=== PATIENT | male | born 1970 | race Caucasian/White ===

== ENCOUNTER 2017-01-09 11:15 | Emergency (ER) | payer BC ==
[2017-01-09] MEDS ORDERED: DEXAMETHASONE 10 MG/ML VIAL PO STA (11:29)
[2017-01-09] MEDS ORDERED: CHERRY SYRUP 10 ML UDC PO ONE (11:35)
[2017-01-09] MEDS ORDERED: DEXAMETHASONE 10 MG/ML VIAL ONE (11:35)
== END 2017-01-09 14:03 | disposition home or self-care (01) ==
DX: G51.0 Bell's palsy (principal); H66.003 Acute suppurative otitis media without spontaneous rupture of ear drum, bilateral
CPT/HCPCS: 36415; 70450; 80053; 83690; 84484; 85025; 93005; 93010; 99283; 99284; A9270

== ENCOUNTER 2020-06-11 10:06 | Outpatient (CLI) | payer BC ==
--- NOTE | 2020-06-11 11:05 | SLEEP CARE CONSULTATION ---
Information from patient questionnaire entered by Trudi Hoyt. I have reviewed and concur with the information entered by Trudi Hoyt. This document represents the service I personally performed and the decisions made by me, Risa Sim ARNP. History of Present Illness Service Date and Time: 06/11/2020 1006 Reason for Visit: New patient Chief Complaint: reports: Insomnia (hard to stay asleep), Unrefreshed sleep, Snoring, Excessive daytime sleepiness, Observed pauses in breathing, Fatigue, Frequent awakenings at night Date of Onset: 5+ years Usual bedtime: 2100 Time it takes to fall asleep: 10-15 minutes Snores at night: Yes Observed to quit breathing while asleep: Yes Sleeps alone due to snoring: No Number of times waking at night: 7-8 Reasons for waking at night: reports: Snoring, Gasping for air, Other (and in a sweat). denies: Choking Toss, Turn, or Twitch while sleeping: Yes Recalls having dreams: Yes (don't have them often) Usually gets out of bed at: 0200, 0400, 0500 Feels refreshed in the morning: No Morning headache: No Sleepy or fatigued during the day: Yes Ever fallen asleep while driving: No Takes day naps: Yes (daily, for about 30 minutes to hours) Dreams during day naps: No Prior sleep studies: No Additional HPI information: I had the pleasure of seeing THUAN BETH today regarding the possibility of him having a sleep disorder. His current complaints are insomnia, snoring, frequent awakenings at night, unrefreshed sleep and fatigue. He has a history of hypertension, depression, anxiety and PTSD. He can fall asleep easily but has difficulty staying asleep. He awakens several times a night. He snores loudly but not enough that his sleeps in another room and she has told him she has seen him pause in breathing while sleeping. He has woken up snoring and "taking a deep breath" like he "had stopped breathing". He states even after a short amount of sleep he will wake up alert and "ready to go" but he is very tired and sleepy throughout the day. He has a brother who has sleep apnea and is on a CPAP machine. His father and son have been known to sleep walk. He states he has not been told he does. - Parasomnia Symptoms Ever been unable to move upon waking from sleep: No Walks in sleep: No Talks in sleep: No Ever acted out dreams in sleep: Yes Ever felt weak in the knees when startled or emotional: No Bothered by creepy, crawly, restless sensations in legs: No Problems with memory or concentration: Yes (concentration mostly) Subjective Initial [place] Sleepiness Scale score: 12 (in 2019) Past Medical History Past Medical History: reports: Hypertension, Anxiety, Asthma, Depression, Mood disorder (PTSD). denies: Claustrophobia, Congestive Heart Failure, Diabetes, Stroke, Coronary Heart Disease, Arrythmia, Hypothyroidism, Anemia, Impotence, GERD, Attention deficit Social History The patient's occupation is not employed. Patient is and lives in [place]. Have you smoked in the past 12 months: No (only 2 cigarettes 2 penaloza ago, ever) Cigarettes per day (20/pack): 3 (1 pack/week) Years of smokin (never really a serious smoker) Smoking Pack Years: 0.3 Alcohol use: Yes Alcohol amount and frequency: 5 beer/month Caffeine use: Yes Caffeine amount and frequency: 2 cokes zeros daily Family History Family history of sleep disordered breathing: Yes Family Hx Sleep Apnea: Sibling: Sleep apnea - Treated, Other: Snoring (son is sleepwalker) Allergies and Home Medications Drug allergies reviewed: Yes (NKDA) Home medication list reviewed: Yes Allergy and home medication list: atorvastatin 40 mg daily hydroxyzine 25 mg up to 4 tabs a day lisinopril 40 mg daily Review of Systems Weight gain over past 5 years: 20 Cardiovascular: reports: high blood pressure, leg or foot swelling. denies: palpitations, chest pain, irregular heart rate or pulse Respiratory: denies: shortness of breath, chronic cough Gastrointestinal: denies: heartburn, difficulty swallowing Urinary: denies: impotence Neurological: denies: headaches, seizure, head trauma, speech dysfunction, gait or balance problems Psychiatric: reports: anxiety, depression, mood disorder. denies: Attention Deficit Hyperactivity, claustrophobia Ear/Nose/Throat: reports: nasal congestion, sinus problems, nose bleeds (all the time as child; only when dry now), injury to nose (broken nose several times), tonsillectomy, wisdom teeth removed. denies: dry mouth/throat Endocrine: denies: thyroid disease Musculoskeletal: denies: muscle pain or cramping, mobility problems Immunologic: reports: sneezing, allergies to food or environment (*environment) Physical Exam Blood Pressure: 152/88 Cuff size: long Heart Rate: 105 O2 Saturation: 98 Height: 6 ft 2 in Weight: 316 lb Body Mass Index: 40.6 BMI Classification: Morbidly Obese Neck circumference: 19.15 (inches) HEENT: No craniofacial malformation Nostrils: patent to airflow Turbinates: normal Septum: midline Mouth and throat: narrow oropharynx Soft palate: normal Hard palate: arched Uvula: normal Uvula visualization: 25% Mallampati Class III Tongue: enlarged in size with teeth ritter on lateral edges Tonsils: absent bilaterally Chin and jaw: normal size and position Neck: normal w/o lymphadenopathy or thyromegaly Heart: regular rate and rhythm Lungs: clear bilaterally Impression and Plan 1. Suspected Obstructive Sleep Apnea-Hypopnea Syndrome, as suggested by a history of loud and irregular snoring, observed cessation of breath while asleep, gasping or choking in sleep, frequent awakening during the night, unrefreshed sleep, cognitive impairment, and excessive daytime sleepiness. I reviewed with patient that a narrow oropharynx and obesity are common predisposing factors for obstructive sleep apnea-hypopnea syndrome. I recommend proceeding to polysomnography to confirm the diagnosis and to assess severity. If the patient has significant sleep disordered breathing, a manual CPAP titration study will also be performed to find the optimal treatment pressure. I informed the patient of what the sleep studies involve and after some discussion, obtained agreement to proceed. The pathophysiology of obstructive sleep apnea-hypopnea syndrome was discussed with the patient and health risks of cardiovascular and cerebrovascular disease if not treated. AASM brochure for obstructive sleep apnea-hypopnea syndrome given and reviewed. Risks of drowsy driving discussed in detail and patient advised to avoid long distance driving and to puller over at the first sign of drowsiness. Patient agreed to plan. * Schedule polysomnography +- manual CPAP titration study. * Avoid long distance driving or driving when feeling sleepy. * Avoid alcohol, sedative and muscle relaxant around bedtime. * Attempt to lose weight. * Review instructions provided by trained office staff on how to prepare for the sleep study. * Return for follow-up after sleep study completed. Visit Type: In Office Time Spent with Patient (minutes): 36 Provider Statement: I spent 100% of the Face to Face Visit with the patient with greater than 50% spent counseling the patient and coordination of care.
[2020-06-11 11:06] VITALS: BP 152/88
== END 2020-06-11 10:07 | disposition home or self-care (01) ==
LOC: SC 10:06
PROVIDERS: ATTEND Nurse Practitioner Family
DX: R06.83 Snoring (principal); R06.81 Apnea, not elsewhere classified; G47.8 Other sleep disorders; G47.10 Hypersomnia, unspecified; E66.01 Morbid (severe) obesity due to excess calories; Z68.41 Body mass index [BMI] 40.0-44.9, adult; I10 Essential (primary) hypertension
CPT/HCPCS: 99204; 99212

== ENCOUNTER 2020-06-17 20:30 | Outpatient (CLI) | payer BC | END 2020-06-17 20:31 | disposition home or self-care (01) | LOC: SC 20:30 | PROVIDERS: ATTEND Nurse Practitioner Family | DX: G47.33 Obstructive sleep apnea (adult) (pediatric) (principal); R09.02 Hypoxemia; E66.9 Obesity, unspecified; Z68.41 Body mass index [BMI] 40.0-44.9, adult | CPT/HCPCS: 95806 ==

== ENCOUNTER 2020-06-29 11:00 | Outpatient (CLI) | payer BC ==
--- NOTE | 2020-06-29 11:24 | SLEEP CARE CONSULTATION ---
Information from patient questionnaire entered by Missy Cartagena. I have reviewed and concur with the information entered by Missy Cartagena. This document represents the service I personally performed and the decisions made by , Risa Sim ARNP. History of Present Illness Service Date and Time: 06/29/2020 1100 Initial [place] Sleepiness Scale score: 12 (in 2020) Current [place] Sleepiness Scale score: 9 Additional HPI information: THUAN BETH returns for follow up and results of the recently performed home sleep study. I explained the pathophysiology behind obstructive sleep apnea. We then spent quite a bit of time discussing different treatment options. For mild obstructive sleep apnea, surgery and oral appliance are alternatives to nasal CPAP therapy but in moderate or severe cases, nasal CPAP is the most effective and reliable treatment. After some discussion, the patient opted to go with the nasal CPAP therapy. Nasal autoCPAP set at 4-15 cmH20 will be ordered with rationale explained. A manual titration study will be ordered if unable to find optimal pressure with office adjustments. I explained how CPAP machine works with sample devices [employer] and [id number] and what to expect when using the machine. Using CPAP every night in order to get used to it was emphasized. Patient advised to put CPAP mask on before getting into bed so as not to fall asleep without CPAP. To assist acclimation to CPAP use, it could also be used for a short time during day while reading or watching TV. The patient was instructed to call the CPAP supplier to discuss any mechanical problem that may occur. If the mask given is uncomfortable or is difficult to keep on through the night even with adjustment, contact the CPAP supplier as many will replace with another mask style if notified before 30 days. If snoring or perceives is not getting enough air or too much air from the machine, notify this office. AASM patient education PAP tips reviewed and given to patient. Patient counseled not drink alcohol less than 4 hours before bedtime as it can increase snoring and apnea. Patient was cautioned about risks of drowsy driving until sleepiness symptoms resolve. Sleep Study - Results Type of Sleep Study: Home sleep study Prior sleep studies: No Polysomnography/Home Sleep Study results: Physician Impression: The quality of the study is good. The length of the study is adequate (> 240 minutes). Please also see the tabulated and graphic data. 1. Obstructive Sleep Apnea-Hypopnea (ICD-10 G47.33), mild, with an AHI of 14.0 /hr and anat SaO2 of 83%. During the study, the patient had 9 apneas (9 obstructive, 0 central, 0 mixed) and 96 hypopneas. The longest episode lasted 92.5 seconds. The respiratory events occurred more frequently during supine sleep (supine AHI was 38.3 and non-supine, 11.61). 2. Hypoxemia (ICD-10 R09.02), mild, with the lowest oxygen saturation of 83 % a nd 6.6 minutes with SaO2 under 90%. Baseline oxygen saturation was normal (Average oxygen saturation was 94%). Allergies and Home Medications Drug allergies reviewed: Yes (NKDA) Home medication list reviewed: Yes (no changes) Review of Systems Review of systems same as previous: Yes (no changes) Physical Exam Heart Rate: 85 O2 Saturation: 98 Height: 6 ft 2 in Weight: 318 lb Body Mass Index: 40.8 BMI Classification: Morbidly Obese Impression and Plan 1. Obstructive Sleep Apnea-Hypopnea Syndrome, mild, with lowest oxygen saturation of 83%. Obviously this is the cause of the patients symptoms of unrefreshed sleep, and excessive daytime sleepiness. Positive pressure therapy could benefit his hypertension, anxiety, depression and mood disorder (PTSD). As mentioned above, the patient will be started on nasal autoCPAP therapy with pressure set at 4-15 cmH2O. A manual titration study will be completed if unable to find optimal treatment pressure with office adjustments. Compliance guidelines also reviewed. A copy of compliance guidelines will be given for reference at check out. Because the apnea is more severe supine, I instructed to avoid sleeping supine using pillow positioning until able to start CPAP use. 2. Obesity, unspecified. Currently patients BMI is 40.6. Obesity increases the risk of apnea, CPAP pressure requirements and overall health risks especially cardiovascular and diabetes. Thus patient is advised to try to lose weight. The BMI chart was reviewed. * Nasal auto CPAP therapy, pressure at 4-15 cm H2O. * Attempt to lose weight. * Avoid alcohol consumption near bedtime. * Avoid supine sleep until using CPAP. * The patient is again cautioned about driving until sleepiness completely resolves. * Return one month after CPAP obtained. I will assess response to therapy and compliance at that time. Counseling Topics: Sleeping position, Weight loss health impact Visit Type: In Office Time Spent with Patient (minutes): 20 Provider Statement: I spent 100% of the Face to Face Visit with the patient with greater than 50% spent counseling the patient and coordination of care.
== END 2020-06-29 11:01 | disposition home or self-care (01) ==
LOC: SC 11:00
PROVIDERS: ATTEND Nurse Practitioner Family
DX: G47.33 Obstructive sleep apnea (adult) (pediatric) (principal); E66.01 Morbid (severe) obesity due to excess calories; Z68.41 Body mass index [BMI] 40.0-44.9, adult
CPT/HCPCS: 99212; 99213

== ENCOUNTER 2020-08-25 07:58 | Outpatient (CLI) | payer BC ==
--- NOTE | 2020-08-25 08:44 | SLEEP CARE CONSULTATION ---
Information from patient questionnaire entered by Missy Cartagena. I have reviewed and concur with the information entered by Missy Cartagena. This document represents the service I personally performed and the decisions made by , Risa Sim ARNP. History of Present Illness Service Date and Time: 08/25/2020 0758 Previous diagnosis: Mild, Obstructive Sleep Apnea-Hypopnea Syndrome AHI: 14.0 (in 2019) Reason for follow up: first compliance Equipment type: CPAP Equipment obtained from: [employer] (got initial supplies, no problems) Mask style: Nasal Mask brand: Respironics Backup mask available: Yes (has other mask) Last cushion change: 1 month Prior sleep studies: Yes Year and Where: 2019 - [facility] Type of Sleep Study: Home sleep study HPI additional information: THUAN BETH was diagnosed to have mild, AHI 14.0, obstructive sleep apnea- hypopnea syndrome and returned today for CPAP therapy first compliance follow- up. CPAP Compliance Data - Data Reviewed with Patient Average duration of nightly device use: 7 hr 49 min Compliance rate %: 96.7 Current pressure setting (cmH2O): 4-15 Humidity settin Heated hose settin Average residual AHI: 2.3 Average large leak: 41 sec Subjective Missed days of use due to: reports: other (power outage) Patient concerns: denies: aerophagia, mask discomfort, air blowing in eyes, mask leak noise, condensation in mask/hose, nasal congestion, dry mouth, nose, throat, epistaxis, other Observed to snore while using device: No Current pressure setting perceived as: comfortable On therapy, patient: reports: sleeping better, awakening more refreshed, being more awake and alert during the day, more rested overall. denies: drowsiness while driving Initial [place] Sleepiness Scale score: 12 (in 2020) Current [place] Sleepiness Scale score: 6 Allergies and Home Medications Drug allergies reviewed: Yes (NKDA) Home medication list reviewed: Yes (no changes) Review of Systems Review of systems same as previous: Yes (no changes) Physical Exam Heart Rate: 76 O2 Saturation: 98 Height: 6 ft 2 in Weight: 331 lb Body Mass Index: 42.5 BMI Classification: Morbidly Obese Impression and Plan 1. Obstructive Sleep Apnea-Hypopnea Syndrome, mild, with good treatment compliance and good apnea control. On CPAP therapy, the patient has better sleep quality and is more rested overall. He is very happy with his CPAP machine and he states he is not having his morning headaches. He feels he has a more positive attitude in the morning that improves his whole day. He did try a full face mask but this did not work for him and he is using a Respironics nasal cushion mask. His median pressure was 9.7 cm H2O, 90% pressure 12.2 cm H2O and max pressure at 13.2. I will adjust his pressure to 9-13 cm H2O to give him room for weight loss. Patient's apnea severity and rationale for treatment to reduce apnea, improve sleep quality and reduce cardiovascular and cerebrovascular events was reviewed. I also reviewed the benefit of consistent device use of CPAP for hypertension, depression and mood disorder (PTSD). * Change auto CPAP pressure to 9-13 cmH2O * Notify me if snoring with mask or feeling that the pressure is too much or too little * Attempt to lose weight * Call this office if any problems using CPAP * Return for follow up in 1-2 months , or sooner if concerns arise Counseling Topics: Spare mask, Weight loss health impact Visit Type: In Office Time Spent with Patient (minutes): 26 Provider Statement: I spent 100% of the Face to Face Visit with the patient with greater than 50% spent counseling the patient and coordination of care.
== END 2020-08-25 07:59 | disposition home or self-care (01) ==
LOC: SC 07:58
PROVIDERS: ATTEND Nurse Practitioner Family
DX: G47.33 Obstructive sleep apnea (adult) (pediatric) (principal); E66.01 Morbid (severe) obesity due to excess calories; Z68.41 Body mass index [BMI] 40.0-44.9, adult
CPT/HCPCS: 99212; 99213

== ENCOUNTER 2020-10-26 08:00 | Outpatient (CLI) | payer BC ==
--- NOTE | 2020-10-26 08:44 | SLEEP CARE CONSULTATION ---
Information from patient questionnaire entered by Trudi Hoyt. I have reviewed and concur with the information entered by Trudi Hoyt. This document represents the service I personally performed and the decisions made by me, Risa Sim ARNP. History of Present Illness Service Date and Time: 10/26/2020 0800 Previous diagnosis: Mild, Obstructive Sleep Apnea-Hypopnea Syndrome AHI: 14.0 Reason for follow up: other (2 month with pressure change) Equipment type: CPAP Equipment obtained from: [employer] (getting supplies as needed) Mask style: Nasal Backup mask available: Yes (other mask) Last cushion change: 1 week Prior sleep studies: Yes Year and Where: 2019 - [facility] Type of Sleep Study: Home sleep study HPI additional information: THUAN BETH was diagnosed to have mild, AHI 14.0, obstructive sleep apnea- hypopnea syndrome and returned today for CPAP therapy two month pressure change follow-up. CPAP Compliance Data - Data Reviewed with Patient Average duration of nightly device use: 9 hours 5 minutes Compliance rate %: 96.7 Current pressure setting (cmH2O): 9-13 Humidity settin Heated hose settin Average residual AHI: 2.8 Average large leak: 22 seconds Subjective Missed days of use due to: reports: other (power outage) Patient concerns: denies: aerophagia, mask discomfort, air blowing in eyes, mask leak noise, condensation in mask/hose, nasal congestion, dry mouth, nose, throat, epistaxis, other Observed to snore while using device: No Current pressure setting perceived as: comfortable On therapy, patient: reports: sleeping better, awakening more refreshed, being more awake and alert during the day, more rested overall. denies: drowsiness while driving Initial [place] Sleepiness Scale score: 12 (in 2019) Current [place] Sleepiness Scale score: 4 Allergies and Home Medications Drug allergies reviewed: Yes (NKDA) Home medication list reviewed: Yes (no changes) Review of Systems Review of systems same as previous: Yes (no changes) Physical Exam Heart Rate: 91 O2 Saturation: 98 Height: 6 ft 2 in Weight: 322 lb Body Mass Index: 41.3 BMI Classification: Morbidly Obese Impression and Plan 1. Obstructive Sleep Apnea-Hypopnea Syndrome, mild, with good treatment compliance and good apnea control. On CPAP therapy, the patient has better sleep quality and is more rested overall. He is overall well pleased with his CPAP therapy and states he has a more positive attitude and energy since he has started using the CPAP machine. He has no complaints or issue with mask use. His current pressure setting is controlling the apneas well, no changes at this time. Patient's apnea severity and rationale for treatment to reduce apnea, improve sleep quality and reduce cardiovascular and cerebrovascular events was reviewed. I also reviewed the benefit of consistent device use of CPAP for hypertension, depression and mood disorder (PTSD). * Continue auto CPAP pressure at 9-13 cmH2O * Notify me if snoring with mask or feeling that the pressure is too much or too little * Attempt to lose weight * Call this office if any problems using CPAP * Return for follow up in 3 months, or sooner if concerns arise Counseling Topics: Spare mask, Weight loss health impact Visit Type: In Office Time Spent with Patient (minutes): 22 Provider Statement: I spent 100% of the Face to Face Visit with the patient with greater than 50% spent counseling the patient and coordination of care.
== END 2020-10-26 08:01 | disposition home or self-care (01) ==
LOC: SC 08:00
PROVIDERS: ATTEND Nurse Practitioner Family
DX: G47.33 Obstructive sleep apnea (adult) (pediatric) (principal); E66.01 Morbid (severe) obesity due to excess calories; Z68.41 Body mass index [BMI] 40.0-44.9, adult
CPT/HCPCS: 99212; 99213

== ENCOUNTER 2021-01-17 08:06 | Outpatient (CLI) | payer BC ==
--- NOTE | 2021-01-17 12:10 | Ultrasound Report ---
PROCEDURE: Abdomen Limited INDICATIONS: ELEVATED LIVER ENZYMES TECHNIQUE: Real-time focused scanning was performed of the abdomen, with image documentation. COMPARISON: None FINDINGS: Study limited to the right upper quadrant at clinician request. The liver is enlarged estrella uring 18.8 cm craniocaudad and has a coarse echotexture consistent with fatty infiltration with relat erendira fatty sparing at the gallbladder fossa. No hepatic mass lesion is seen. Gallbladder appears normal as do the bile ducts with common duct measuring 6 mm in diameter. The panc reas visualized appears normal as does the right kidney. IMPRESSION: Prominent fatty infiltration throughout the liver, which is enlarged in craniocaudad length. No evide nce of hepatic mass lesion, ascites, or varices. No biliary distention is found. Reviewed by: Reginaldo Erwin MD on 01/17/2021 12:08 PM PDT Approved by: Reginaldo Erwin MD on 01/17/2021 12:08 PM PDT Station ID: [id number]
== END 2021-01-17 08:07 | disposition home or self-care (01) ==
LOC: DI 08:06
PROVIDERS: ATTEND Registered Nurse
DX: K76.0 Fatty (change of) liver, not elsewhere classified (principal)

== ENCOUNTER 2021-01-27 08:06 | Outpatient (CLI) | payer BC ==
--- NOTE | 2021-01-27 08:43 | SLEEP CARE CONSULTATION ---
Information from patient questionnaire entered by Missy Cartagena. I have reviewed and concur with the information entered by Missy Cartagena. This document represents the service I personally performed and the decisions made by , Risa Sim ARNP. History of Present Illness Service Date and Time: 01/27/2021 0806 Previous diagnosis: Mild, Obstructive Sleep Apnea-Hypopnea Syndrome AHI: 14.0 (in 2019) Reason for follow up: three month Equipment type: CPAP Equipment obtained from: [employer] (having difficulties getting supplies; he has cancelled with them and wants another DME) Mask style: Nasal Backup mask available: No (will keep old mask when replaced) Last cushion change: 2 months Prior sleep studies: Yes Year and Where: 2019 - [facility] Type of Sleep Study: Home sleep study HPI additional information: THUAN BETH was diagnosed to have mild, AHI 14.1, obstructive sleep apnea- hypopnea syndrome and returned today for CPAP therapy three month follow-up. CPAP Compliance Data - Data Reviewed with Patient Average duration of nightly device use: 7 hr 47 min Compliance rate %: 97.8 (90 days) Current pressure setting (cmH2O): 9-13 Humidity settin Heated hose settin Average residual AHI: 2.9 Average large leak: 28 sec Subjective Patient concerns: reports: mask discomfort (skin irritation with some bleeding sore under his nose). denies: aerophagia, air blowing in eyes, mask leak noise, condensation in mask/hose, nasal congestion, dry mouth, nose, throat, epistaxis, other Observed to snore while using device: No Current pressure setting perceived as: comfortable On therapy, patient: reports: sleeping better, awakening more refreshed, being more awake and alert during the day, more rested overall. denies: drowsiness while driving Initial [place] Sleepiness Scale score: 12 (in 2019) Current [place] Sleepiness Scale score: 6 Allergies and Home Medications Home medication list reviewed: Yes (no changes) Review of Systems Review of systems same as previous: Yes (no changes) Physical Exam Heart Rate: 104 O2 Saturation: 99 Height: 6 ft 2 in Weight: 320 lb Body Mass Index: 41.1 BMI Classification: Morbidly Obese Impression and Plan 1. Obstructive Sleep Apnea-Hypopnea Syndrome, mild, with good treatment compliance and good apnea control. On CPAP therapy, the patient has better sleep quality and is more rested overall. He had some skin irritation that turned into a bleeding sore with the present nasal mask. He would like to try nasal pillows mask and he has a Dreamwear headgear set with the Dreamwear nasal cushion. I will write for a change in mask. He has been having trouble getting supplies from [facility]. He would like to transfer to another DME. I will have my social work coordinator inform of DME options. A DWO prescription will then be made. Patient advised to contact this office if further supply problems. He is otherwise doing really well and is very satisfied with his treatment. Patient's apnea severity and rationale for treatment to reduce apnea, improve sleep quality and reduce cardiovascular and cerebrovascular events was reviewed. I also reviewed the benefit of consistent device use of CPAP for hypertension, depression and mood disorder (PTSD). * Continue autoCPAP pressure at 9-13 cmH2O * Transfer DME * Try a Dreamwear nasal pillows mask * Notify me if snoring with mask or feeling that the pressure is too much or too little * Attempt to lose weight * Call this office if any problems using CPAP * Return for follow up in 6 months, or sooner if concerns arise Counseling Topics: Spare mask, Weight loss health impact Visit Type: In Office Time Spent with Patient (minutes): 23 Provider Statement: I spent 100% of the Face to Face Visit with the patient with greater than 50% spent counseling the patient and coordination of care.
== END 2021-01-27 08:07 | disposition home or self-care (01) ==
LOC: SC 08:06
PROVIDERS: ATTEND Nurse Practitioner Family
DX: G47.33 Obstructive sleep apnea (adult) (pediatric) (principal); E66.01 Morbid (severe) obesity due to excess calories; Z68.41 Body mass index [BMI] 40.0-44.9, adult
CPT/HCPCS: 99212; 99213

== ENCOUNTER 2022-08-03 06:07 | Day surgery (SDC) | payer BC ==
[2022-08-03] MEDS ORDERED: LACTATED RINGERS 1,000 ML IV ONE (06:58)
--- NOTE | 2022-08-03 07:26 | ANESTHESIA ---
Pre-Anesthesia VS, & Labs - Diagnosis screening - Procedure colonoscopy Vital Signs: Temp Pulse Resp BP Pulse Ox O2 Flow Rate 36.9 C 110 H 14 176/105 H 97 08/03/22 06:32 08/03/22 06:32 08/03/22 06:32 08/03/22 06:32 08/03/22 06:32 Height: 6 ft 2 in Weight (kg): 132.9 kg Body Mass Index: 37.6 BMI Classification: Obese - NPO >8 hours Last Fluid Intake: am prep - Lab Results Current Lab Results: Laboratory Tests 08/03/22 07:03: POC Whole Bld Glucose 224 H Lab results reviewed: Yes Home Medications and Allergies Home Medications: Ambulatory Orders Atorvastatin Calcium 40 mg PO DAILY 07/24/22 Chlorthalidone 25 mg PO DAILY 07/24/22 Lisinopril [Zestril] 40 mg PO DAILY 07/24/22 Semaglutide [Ozempic] 0.25 - 0.5 mg SQ OAW 07/24/22 hydrOXYzine HCL [Hydroxyzine HCl] 25 mg PO QID PRN 07/24/22 Atorvastatin Calcium 40 mg PO DAILY 07/24/22 Chlorthalidone 25 mg PO DAILY 07/24/22 Lisinopril [Zestril] 40 mg PO DAILY 07/24/22 Semaglutide [Ozempic] 0.25 - 0.5 mg SQ OAW 07/24/22 hydrOXYzine HCL [Hydroxyzine HCl] 25 mg PO QID PRN 07/24/22 Allergies/Adverse Reactions: Allergies Allergy/AdvReac Type Severity Reaction Status Date / Time metformin AdvReac Cramps Verified 07/24/22 12:04 Anes History & Medical History - Anesthetic History Anesthesia Complications: reports: No previous complications Family history of Anesthesia Complications: Denies Family history of Malignant Hyperthermia: Denies - Medical History Cardiovascular: reports: Hypertension, High cholesterol Pulmonary: reports: Asthma, Sleep apnea Gastrointestinal: reports: None Urinary: reports: None Musculoskeletal: reports: None Endocrine/Autoimmune: reports: None, Type 2 diabetes Skin: reports: None Smoking Status: Never smoker - Surgical History Eyes Ears Nose Throat (EENT): reports: Tonsil/Adenoidectomy Exam General: Alert, Oriented x3, Cooperative Dental: WNL Mouth Openin Fingerbreadth Neck Mobility: Normal Mallampati classification: II Respiratory: Lungs clear, Normal breath sounds, No respiratory distress Cardiovascular: Regular rate Neurological: Normal speech Mental/Cognitive Status: Alert/Oriented X3, Normal for patient Cognitive Status: Within normal limits Plan Anesthesia Type: Total IV Consent for Procedure(s) Verified and Reviewed: Yes Code Status: Attempt Resuscitation ASA classification: 2-Mild systemic disease Is this case an emergency?: No
[2022-08-03] MEDS ORDERED: MIDAZOLAM 2 MG/2 ML VIAL ONE (07:31)
[2022-08-03] MEDS ORDERED: PROPOFOL 500 MG/50 ML 500 MG/50 ML VIAL ONE (07:31)
--- NOTE | 2022-08-03 07:37 | HISTORY & PHYSICAL EXAMINATION ---
Chief Complaint - Chief Complaint Chief Complaint: here for colonoscopy History of Present Illness - History Obtained From Records Reviewed: yes History obtained from: pt Exam Limitations: none - History of Present Illness HPI Comment/Other: positive cologuard. no intestinal symptoms History - Past Medical History Cardiovascular: reports: Hypertension, High cholesterol Respiratory: reports: Asthma, Sleep apnea Endocrine/Autoimmune: reports: None, Type 2 diabetes GI: reports: None : reports: None HEENT: reports: Chronic vision loss, Chronic hearing loss, Other Psych: reports: Depression, Anxiety, Panic attacks, Post traumatic stress disorder Musculoskeletal: reports: None Derm: reports: None MRSA Hx?: No - Past Surgical History HEENT: reports: Tonsil/Adenoidectomy Meds/Allgy - Home Medications Home Medications: Ambulatory Orders Medication Instructions Recorded Confirmed Atorvastatin Calcium 40 mg PO DAILY 07/24/22 08/03/22 Chlorthalidone 25 mg PO DAILY 07/24/22 08/03/22 Lisinopril [Zestril] 40 mg PO DAILY 07/24/22 08/03/22 Semaglutide [Ozempic] 0.25 - 0.5 mg SQ OAW 07/24/22 08/03/22 hydrOXYzine HCL [Hydroxyzine HCl] 25 mg PO QID PRN 07/24/22 07/24/22 - Allergies Allergies/Adverse Reactions: Allergies Allergy/AdvReac Type Severity Reaction Status Date / Time metformin AdvReac Cramps Verified 07/24/22 12:04 Review of Systems - Other Findings Other Findings: 10 pt ros as above otherwise unremarkable Exam - Vital Signs Reviewed Vital Signs: Yes Vital Signs: Vital Signs x48h Temp Pulse Resp BP Pulse Ox 08/03/22 06:32 36.9 C 110 H 14 176/105 H 97 - Physical Exam General Appearance: positive: No acute distress, Alert Eyes Bilateral: positive: PERRL, EOMI ENT: positive: No signs of dehydration Neck: positive: No JVD Respiratory: positive: No respiratory distress, Breath sounds nml Cardiovascular: positive: Regular rate & rhythm Abdomen: positive: Non-tender, No distention Neurologic/Psychiatric: positive: Oriented x3 Conclusion/Plan - Problem List (1) Abnormal stool test Conclusion/Plan: positive cologuard plan colonoscopy. parq held and consent obtained - Lab Results Lab results reviewed: Yes
[2022-08-03] MEDS ORDERED: PROPOFOL 200 MG/20 ML VIAL IVP ONE ×3 (07:47→10:12)
[2022-08-03] MEDS ORDERED: LACTATED RINGERS 500 ML IV ONE (08:29)
[2022-08-03 08:49] VITALS: BP 112/78
--- NOTE | 2022-08-03 08:54 | ANESTHESIA POST OP EVALUATION ---
Anesthesia Post Eval - Post Anesthesia Eval Vitals: Last Vital Signs Temp 36.0 C L 08/03/22 08:48 Pulse 96 08/03/22 08:48 Resp 14 08/03/22 08:48 BP 112/78 08/03/22 08:48 Pulse Ox 96 08/03/22 08:48 O2 Flow Rate CV Function Including HR & BP: Stable Pain Control: Satisfactory Nausea & Vomiting: Negative Mental Status: Baseline Respiratory Status: Airway Patent Hydration Status: Satisfactory Anesthesia Complications: None
== END 2022-08-03 06:08 | disposition home or self-care (01) ==
LOC: SDS 06:07
PROVIDERS: ATTEND Surgery
PROC: 0DBN8ZX Excision of Sigmoid Colon, Via Natural or Artificial Opening Endoscopic, Diagnostic (ICD-10-PCS; 2022-08-03)
PROC: 0DBP8ZX Excision of Rectum, Via Natural or Artificial Opening Endoscopic, Diagnostic (ICD-10-PCS; 2022-08-03)
PROC: 0DBK8ZX Excision of Ascending Colon, Via Natural or Artificial Opening Endoscopic, Diagnostic (ICD-10-PCS; principal; 2022-08-03 07:30)
DX: R19.5 Other fecal abnormalities (principal); D12.2 Benign neoplasm of ascending colon; D12.5 Benign neoplasm of sigmoid colon; K63.5 Polyp of colon; K62.1 Rectal polyp; K57.30 Diverticulosis of large intestine without perforation or abscess without bleeding; I10 Essential (primary) hypertension; J45.909 Unspecified asthma, uncomplicated; G47.30 Sleep apnea, unspecified; E11.9 Type 2 diabetes mellitus without complications; E66.9 Obesity, unspecified; Z68.37 Body mass index [BMI] 37.0-37.9, adult; Z79.84 Long term (current) use of oral hypoglycemic drugs
CPT/HCPCS: 45380; 45385; J7120

== ENCOUNTER 2024-05-14 14:44 | Outpatient (CLI) | payer BC ==
--- NOTE | 2024-05-14 15:36 | Sleep Patient Instructions ---
Sleep Center Visit Summary - Patient Visit Information Reason for Visit: Initial consultation - Patient Instructions Additional Instructions: You will continue with CPAP therapy with pressure changed to 10-14 cmH2O. Please let us know if the pressure change is uncomfortable and we can make further adjustments of the pressure. A supply prescription will be updated with your DME supplier. I have added an order to repair or replace your PAP machine because of the malfunctioning heating element. Please call the office to schedule a compliance follow up once if you get a new device. We encourage you to continue to try to lose weight. Please follow up with the sleep care office one month after obtaining new device or one year if they just repair the machine. - Clinic Information Contact: Merged with [facility] [address] [place] [address] [email or web address] T: [phone]
--- NOTE | 2024-05-14 15:41 | SLEEP CARE CONSULTATION ---
Information from patient questionnaire entered by Ivana Bowie. I have reviewed and concur with the information entered by Ivana Bowie. This document represents the service I personally performed and the decisions made by me, Risa Sim ARNP. History of Present Illness Service Date and Time: 05/14/2024 1444 Reason for Visit: New patient, sleep apnea on CPAP therapy, Re-establish care Chief Complaint: reports: Other (Update supplies) Usual bedtime: 8:30 PM Time it takes to fall asleep: Quickly Snores at night: Yes Observed to quit breathing while asleep: Yes Sleeps alone due to snoring: No Number of times waking at night: 1 time Reasons for waking at night: reports: Bathroom Toss, Turn, or Twitch while sleeping: No Recalls having dreams: Yes Usually gets out of bed at: 6:30 AM Feels refreshed in the morning: Yes Morning headache: No Sleepy or fatigued during the day: No Ever fallen asleep while driving: No Takes day naps: Yes Dreams during day naps: Yes [facility] sleep [facility]: Yes [facility] Type of Sleep Study: Home sleep study Additional HPI information: THUAN BETH was previously diagnosed to have mild, AHI 14, obstructive sleep apnea-hypopnea syndrome and comes in today to re-establish care for CPAP therapy. - Parasomnia Symptoms Walks in sleep: No Talks in sleep: No Ever acted out dreams in sleep: No Ever felt weak in the knees when startled or emotional: No Bothered by creepy, crawly, restless sensations in legs: No Problems with memory or concentration: Yes CPAP Compliance Data - Data Reviewed with Patient Average duration of nightly device use: 8 h 14 min Compliance rate %: 100 (180/180 days used; 11/16/23-05/13/24) Current pressure setting (cmH2O): 9-13 Humidity settin Heated hose settin Average residual AHI: 3.1 (RERA-4.5) Central apnea: 0.3 Obstructive apnea: 2 Hypopnea: 0.8 Average large leak: 0 sec Compliance data discussion: He has a Dreamstation 2. He has gotten supplies from [facility] but has not been able to get for some time, needs new prescription for supplies. His machine's heating element for the humidifier is not working consistently in his CPAP. He is using a nasal pillows mask. Subjective Patient concerns: reports: other (heater element does not work every day). denies: aerophagia, mask discomfort, air blowing in eyes, mask leak noise, condensation in mask/hose, nasal congestion, dry mouth, nose, throat, epistaxis Observed to snore while using device: No Current pressure setting perceived as: comfortable On therapy, patient: reports: sleeping better, awakening more refreshed, being more awake and alert during the day, more rested overall. denies: drowsiness while driving Initial [place] Sleepiness Scale score: 12 (in 2019) Current [place] Sleepiness Scale score: 7 (05/14/24) Past Medical History Past Medical History: reports: Hypertension, Diabetes, Anxiety, Depression Social History The patient is not employed. Patient is and lives in [place]. Have you smoked in the past 12 months: No (Social smoker - quit years ago) Quit date: 2014 Alcohol use: Yes Alcohol amount and frequency: Social Caffeine use: Yes Caffeine amount and frequency: 2 or 3 a day Family History Family history of sleep disordered breathing: Yes Family Hx Sleep Apnea: Father: Snoring, Sibling: Snoring, Sleep apnea - Treated Allergies and Home Medications Known drug allergies: Yes (as listed) Drug allergies reviewed: Yes Home medication list reviewed: Yes (as listed) Allergy and home medication list: Allergies metformin Adverse Reaction Cramps Home Medications Medication Instructions Recorded Confirmed Last Taken Type Atorvastatin Calcium 40 mg PO DAILY 07/24/22 05/14/24 08/02/22 History Chlorthalidone 25 mg PO DAILY 07/24/22 05/14/24 08/02/22 History Lisinopril [Zestril] 40 mg PO DAILY 07/24/22 05/14/24 08/02/22 History Semaglutide [Ozempic] 0.25 - 0.5 mg SQ OAW 07/24/22 05/14/24 08/02/22 History hydrOXYzine HCL [Hydroxyzine HCl] 25 mg PO QID PRN 07/24/22 05/14/24 Unknown History Review of Systems Weight gain over past 5 years: 44 Cardiovascular: reports: high blood pressure Respiratory: denies: shortness of breath Gastrointestinal: denies: heartburn Neurological: denies: headaches Psychiatric: reports: Attention Deficit Hyperactivity, anxiety, depression Ear/Nose/Throat: reports: injury to nose, tonsillectomy, wisdom teeth removed Physical Exam Vital signs obtained and entered by: Risa Mari NP Blood Pressure: 139/92 Cuff size: long (left arm) Heart Rate: 74 O2 Saturation: 98 Height: 6 ft 1 in Weight: 276 lb 3.2 oz Weight change since last visit: 44 lb loss Body Mass Index: 36.4 BMI Classification: Obese Heart: regular rate and rhythm Lungs: clear bilaterally Impression and Plan 1. Obstructive Sleep Apnea-Hypopnea Syndrome, mild, with good treatment compliance and good apnea control. On CPAP therapy, the patient has better sleep quality and is more rested overall. He consistently uses his CPAP machine but has not been able to make it back for follow-ups. He really is satisfied with current CPAP therapy and has significant improvement of his sleep apnea. He does feel like he could have a little bit more air at times and he is currently using the top pressure of 13 cm H2O most of the time. I will adjust his pressure to 10-14 cm H2O for patient comfort. He states his machine his humidifier is not working consistently. The heating element is not always working. He does have a DreamStation 2 that was a replacement for his DreamStation. I will add an order for a repair or replace of his CPAP. If they are able to repair the humidifier then we will see him next year but if they need to replace the machine we will see him in a compliance follow-up about a month after he gets his new machine. He voiced understanding and agreement with this plan of care. Patient's apnea severity and rationale for treatment to reduce apnea, improve sleep quality and reduce cardiovascular and cerebrovascular events was reviewed. I also reviewed the benefit of consistent device use of CPAP for hypertension, diabetes, depression/anxiety, PTSD. 2. Obesity, unspecified. Currently patients BMI is 36.4. He has lost weight. Obesity increases the risk of apnea, CPAP pressure requirements and overall health risks especially cardiovascular and diabetes. Thus patient is advised to continue to try to lose weight. * Change auto CPAP pressure at 10-14 cmH2O * Repair or replace CPAP, humidifier heating element not working. * Update supply prescription. * Notify me if snoring with mask or feeling that the pressure is too much or too little * Attempt to lose weight * Call this office if any problems using CPAP * Return for follow up in 12 months if they repair is device or a compliance followup is they replace the CPAP, or sooner if concerns arise Adjust device pressure to (cmH2O): 10-14 Counseling Topics: Spare mask, Weight loss health impact Prescriptions: Auto CPAP (repair or replace), Device supplies Follow up with Sleep Care in: other (12 months or compliance follow up if machine replaced) Visit Type: In Office Time Spent with Patient (minutes): 35 Provider Statement: I spent 100% of the Face to Face Visit with the patient with greater than 50% spent counseling the patient and coordination of care.
[2024-05-14 15:43] VITALS: BP 139/92; O2SAT 98
== END 2024-05-14 14:45 | disposition home or self-care (01) ==
LOC: SC 14:44
PROVIDERS: ATTEND Nurse Practitioner Family
DX: G47.33 Obstructive sleep apnea (adult) (pediatric) (principal); E66.9 Obesity, unspecified; Z68.36 Body mass index [BMI] 36.0-36.9, adult
CPT/HCPCS: 99203; 99212